=== PATIENT | female | born 1950 | race American Indian/Alaskan Native ===

== ENCOUNTER 2018-01-04 20:49 | Inpatient (IN) | payer MEDICARE, OTHER ==
[2018-01-04 22:45] LABS: Basophils # (Auto) 0.1 K/mm3 (0.0-0.1); Basophils % (Auto) 0.7 % (0.0-1.8); Eosinophils # (Auto) 0.1 K/mm3 (0.0-0.4); Eosinophils % (Auto) 1.3 % (0.0-4.3); Hematocrit 41.1 % (30.3-42.9); Lymphocytes # (Auto) 3.4 K/mm3 (1.2-5.4); Mean Corpuscular HGB Conc 34 % (30-34); Mean Corpuscular Hemoglobin 31 pg (28-32); Mean Corpuscular Volume 92 fl (79-97); Monocytes # (Auto) 0.6 K/mm3 (0.0-0.8); Monocytes % (Auto) 6.8 % (0.0-7.3); Platelet Count 277 K/mm3 (140-440); Red Cell Distribution Width 14.2 % (13.2-15.2)
[2018-01-04 23:12] LABS: Alanine Aminotransferase 12 units/L (7-56); Albumin 4.5 g/dL (3.9-5); BUN/Creatinine Ratio 12; Blood Urea Nitrogen 7 mg/dL (7-17); Calcium 9.7 mg/dL (8.4-10.2); Hemolysis Index 5
[2018-01-05] MEDS ORDERED: NACL 0.9% 1000 ML 1,000 ML IV ONE (07:59)
[2018-01-05] MEDS ORDERED: ZOFRAN IV ONE (07:59)
--- NOTE | 2018-01-05 08:05 | Emergency Department Report ---
ED Dizziness HPI - General Chief Complaint: Dizziness Stated Complaint: N/V; WEAKNESS Time Seen by Provider: 01/05/18 07:51 Source: patient Mode of arrival: Ambulatory Limitations: No Limitations - History of Present Illness Initial Comments: Mrs. Uriostegui is a 67 years old female with history of hypertension and GERD. Patient presented to the ER complaining off day history of nausea vomiting and diarrhea and nasal drainage. She stated that she is unable to keep anything down. Patient is also stating that she has been very dizzy lately. She denied any chest pain, or shortness of breath, abdominal pain, weakness numbness or tingling sensation. MD Complaint: dizziness - Related Data Allergies Allergy/AdvReac Type Severity Reaction Status Date / Time No Known Allergies Allergy Verified 01/05/18 08:05 ED Review of Systems ROS: Stated complaint: N/V; WEAKNESS Other details as noted in HPI Comment: All other systems reviewed and negative Constitutional: denies: chills, fever ENT: throat pain Cardiovascular: denies: chest pain, palpitations Gastrointestinal: nausea, vomiting, diarrhea. denies: abdominal pain, constipation, hematemesis, hematochezia Genitourinary: denies: urgency Neurological: denies: headache, weakness, numbness, paresthesias, confusion, abnormal gait ED Past Medical Hx - Past Medical History Hx Hypertension: Yes Hx GERD: Yes Hx Arthritis: Yes - Surgical History Additional Surgical History: Hysterectomy, Fracture right knee, Lap band, Total right knee replacement - Social History Smoking Status: Never Smoker Substance Use Type: None ED Physical Exam - General Limitations: No Limitations General appearance: alert, in no apparent distress - Head Head exam: Present: atraumatic, normocephalic, normal inspection - ENT ENT exam: Present: mucous membranes dry - Neck Neck exam: Present: normal inspection, full ROM. Absent: tenderness, meningismus, lymphadenopathy, thyromegaly - Respiratory Respiratory exam: Present: normal lung sounds bilaterally. Absent: respiratory distress, wheezes, rales, rhonchi, stridor, chest wall tenderness, accessory muscle use, decreased breath sounds, prolonged expiratory - Cardiovascular Cardiovascular Exam: Present: regular rate, normal rhythm, normal heart sounds - GI/Abdominal GI/Abdominal exam: Present: soft, normal bowel sounds. Absent: distended, tenderness, guarding, rebound, rigid, organomegaly, mass, bruit, pulsatile mass , hernia - Extremities Exam Extremities exam: Present: normal inspection, full ROM, normal capillary refill - Back Exam Back exam: Present: normal inspection, full ROM. Absent: tenderness, CVA tenderness (R), CVA tenderness (L), muscle spasm, paraspinal tenderness, vertebral tenderness, rash noted - Neurological Exam Neurological exam: Present: alert, oriented X3, CN II-XII intact, normal gait, reflexes normal - Skin Skin exam: Present: warm, intact, normal color ED Course Vital Signs 01/04/18 01/05/18 01/05/18 21:53 02:42 07:46 Temperature 98.7 F 97.8 F Pulse Rate 84 86 67 Respiratory 18 14 14 Rate Blood Pressure 145/75 159/73 Blood Pressure [Left] O2 Sat by Pulse 98 100 99 Oximetry 01/05/18 01/05/18 01/05/18 07:51 08:00 08:01 Temperature 98.2 F Pulse Rate 71 76 Respiratory 16 22 16 Rate Blood Pressure 152/75 Blood Pressure 152/75 [Left] O2 Sat by Pulse 100 Oximetry ED Medical Decision Making - Lab Data Result diagrams: 01/04/18 22:20 01/04/18 22:20 - EKG Data -: EKG Interpreted by Mi EKG shows normal: sinus rhythm Rate: normal - EKG Data Interpretation: no acute changes - Radiology Data Radiology results: report reviewed Referring Physician: MATHIEU CANO Patient Name: DEVON URIOSTEGUI Date of : 1950 Sex: Female Report Date: 2018-01-05 Report Status: Finalized Findings [facility] [address] [place] [address] XRay Report Signed Patient: DEVON URIOSTEGUI MR#: [id number] : 1950 Acct:[id number] Age/Sex: 67 / F ADM Date: 01/04/18 Loc: ED Attending Dr: Ordering Physician: MATHIEU CANO Date of Service: 01/05/18 Procedure(s): XR chest 1V ap Accession Number(s): [id number] cc: MATHIEU CANO Fluoro Time In Minutes: FINAL REPORT EXAM: XR CHEST 1V AP HISTORY: cough TECHNIQUE: Frontal chest x-ray. PRIORS: None currently available. FINDINGS: Cardiac silhouette is within normal limits. Aortic calcifications. There is no effusion. There is no pneumothorax. There is no consolidation. There are no suspicious osseous lesions. IMPRESSION: No acute cardiopulmonary findings. Transcribed By: JEAN-PAUL Dictated By: CARRILLO KEARNEY MD Electronically Authenticated By: CARRILLO KEARNEY MD Signed Date/Time: 01/05/18934 Referring Physician: MATHIEU CANO Patient Name: DEVON URIOSTEGUI Date of : 1950 Sex: Female Report Date: 2018-01-05 Report Status: Finalized Findings [facility] [address] [place] [address] Cat Scan Report Signed Patient: DEVON URIOSTEGUI MR#: [id number] : 1950 Acct:[id number] Age/Sex: 67 / F ADM Date: 01/04/18 Loc: ED Attending Dr: Ordering Physician: MATHIEU CANO Date of Service: 01/05/18 Procedure(s): CT head/brain wo con Accession Number(s): [id number] cc: MATHIEU CANO FINAL REPORT EXAM: CT HEAD/BRAIN WO CON HISTORY: dizziness TECHNIQUE: CT of the Head without IV contrast. PRIORS: None currently available. FINDINGS: There is no evidence for acute ischemia. There is no hemorrhage. There is no midline shift. There is no hydrocephalus. There is no mass. Age appropriate [place]-white matter attenuation is noted. There is no calvarial fracture. The temporal bones demonstrate aerated mastoid air cells. The middle ears appear unremarkable. Paranasal sinuses are unremarkable. Globes are intact. IMPRESSION: No acute intracranial findings. Transcribed By: TYM Dictated By: CARRILLO KEARNEY MD Electronically Authenticated By: CARRILLO KEARNEY MD Signed Date/Time: 01/05/18928 DD/ 8 TD/TT: 01/05/18928 DD/ 4 TD/TT: 01/05/18934 - Medical Decision Making I discussed the patient was Dr. Conley, he agreed to admit the patient to his service. Critical Care Time: Yes Critical care time in (mins) excluding proc time.: 30 Critical care attestation.: If time is entered above; I have spent that time in minutes in the direct care of this critically ill patient, excluding procedure time. ED Disposition Clinical Impression: Dizziness, Hypokalemia, Vomiting Disposition: OP ADMIT IP TO THIS HOSP Is pt being admited?: Yes Condition: Stable Referrals: JYOTI LEMOS MD [Primary Care Provider] - 3-5 Days
[2018-01-05] MEDS: KCL 10MEQ/100ML 10 MEQ/100 ML BAG IV SCH ×2 (09:23→11:37)
--- NOTE | 2018-01-05 09:30 | Cat Scan Report ---
FINAL REPORT EXAM: CT HEAD/BRAIN WO CON HISTORY: dizziness TECHNIQUE: CT of the Head without IV contrast. PRIORS: None currently available. FINDINGS: There is no evidence for acute ischemia. There is no hemorrhage. There is no midline shift. There is no hydrocephalus. There is no mass. Age appropriate [place]-white matter attenuation is noted. There is no calvarial fracture. The temporal bones demonstrate aerated mastoid air cells. The middle ears appear unremarkable. Paranasal sinuses are unremarkable. Globes are intact. IMPRESSION: No acute intracranial findings.
--- NOTE | 2018-01-05 09:36 | XRay Report ---
FINAL REPORT EXAM: XR CHEST 1V AP HISTORY: cough TECHNIQUE: Frontal chest x-ray. PRIORS: None currently available. FINDINGS: Cardiac silhouette is within normal limits. Aortic calcifications. There is no effusion. There is no pneumothorax. There is no consolidation. There are no suspicious osseous lesions. IMPRESSION: No acute cardiopulmonary findings.
[2018-01-05] MEDS ORDERED: NACL 0.9% 250ML 250 ML IV ONE (10:44)
[2018-01-05] MEDS ORDERED: PHENERGAN PR PRN (16:01)
[2018-01-05] MEDS ORDERED: MORPHINE IV PRN (16:01)
[2018-01-05] MEDS ORDERED: TYLENOL PO PRN ×2 (16:01→23:30)
[2018-01-05] MEDS ORDERED: SODIUM CHLORIDE FLUSH SYRINGE 10 ML IV PRN ×2 (16:01→23:30)
[2018-01-05] MEDS ORDERED: REGLAN IV PRN (16:01)
[2018-01-05] MEDS ORDERED: ZOFRAN IV PRN ×2 (16:01→23:30)
--- NOTE | 2018-01-05 16:01 | History and Physical Report ---
History of Present Illness Date of examination: 01/05/18 Date of admission: 01/05/18 11:18 Medications and Allergies Allergies Allergy/AdvReac Type Severity Reaction Status Date / Time No Known Allergies Allergy Verified 01/05/18 08:05 Exam - Constitutional Vitals: Temp Pulse Resp BP Pulse Ox 98.2 F 72 18 112/44 95 01/05/18 13:08 01/05/18 13:00 01/05/18 13:00 01/05/18 13:00 01/05/18 13:00 Results - Labs CBC & Chem 7: 01/04/18 22:20 01/04/18 22:20 Labs: Laboratory Last Values WBC 9.3 K/mm3 (4.5-11.0) 01/04/18 22:20 RBC 4.50 M/mm3 (3.65-5.03) 01/04/18 22:20 Hgb 14.0 gm/dl (10.1-14.3) 01/04/18 22:20 Hct 41.1 % (30.3-42.9) 01/04/18 22:20 MCV 92 fl (79-97) 01/04/18 22:20 MCH 31 pg (28-32) 01/04/18 22:20 MCHC 34 % (30-34) 01/04/18 22:20 RDW 14.2 % (13.2-15.2) 01/04/18 22:20 Plt Count 277 K/mm3 (140-440) 01/04/18 22:20 Lymph % (Auto) 37.0 % (13.4-35.0) H 01/04/18 22:20 Crane % (Auto) 6.8 % (0.0-7.3) 01/04/18 22:20 Eos % (Auto) 1.3 % (0.0-4.3) 01/04/18 22:20 Baso % (Auto) 0.7 % (0.0-1.8) 01/04/18 22:20 Lymph # 3.4 K/mm3 (1.2-5.4) 01/04/18 22:20 Crane # 0.6 K/mm3 (0.0-0.8) 01/04/18 22:20 Eos # 0.1 K/mm3 (0.0-0.4) 01/04/18 22:20 Baso # 0.1 K/mm3 (0.0-0.1) 01/04/18 22:20 Seg Neutrophils % 54.2 % (40.0-70.0) 01/04/18 22:20 Seg Neutrophils # 5.0 K/mm3 (1.8-7.7) 01/04/18 22:20 Sodium 143 mmol/L (137-145) 01/04/18 22:20 Potassium 2.7 mmol/L (3.6-5.0) L* 01/04/18 22:20 Chloride 95.7 mmol/L (98-107) L 01/04/18 22:20 Carbon Dioxide 36 mmol/L (22-30) H 01/04/18 22:20 Anion Gap 14 mmol/L 01/04/18 22:20 BUN 7 mg/dL (7-17) 01/04/18 22:20 Creatinine 0.6 mg/dL (0.7-1.2) L 01/04/18 22:20 Estimated GFR > 60 ml/min 01/04/18 22:20 BUN/Creatinine Ratio 12 % 01/04/18 22:20 Glucose 119 mg/dL (65-100) H 01/04/18 22:20 Calcium 9.7 mg/dL (8.4-10.2) 01/04/18 22:20 Magnesium 2.10 mg/dL (1.7-2.3) 01/05/18 00:51 Total Bilirubin 1.40 mg/dL (0.1-1.2) H 01/04/18 22:20 AST 20 units/L (5-40) 01/04/18 22:20 ALT 12 units/L (7-56) 01/04/18 22:20 Alkaline Phosphatase 92 units/L (35-129) 01/04/18 22:20 Total Protein 7.6 g/dL (6.3-8.2) 01/04/18 22:20 Albumin 4.5 g/dL (3.9-5) 01/04/18 22:20 Albumin/Globulin Ratio 1.5 % 01/04/18 22:20
[2018-01-05] MEDS: D5NS 1,000 ML IV SCH (17:28)
[2018-01-05] MEDS ORDERED: PEPCID PO SCH (22:00)
[2018-01-05] MEDS: SODIUM CHLORIDE FLUSH SYRINGE 10 ML IV SCH (22:27)
[2018-01-06 03:59] LABS: Basophils # (Auto) 0.1 K/mm3 (0.0-0.1); Basophils % (Auto) 0.7 % (0.0-1.8); Eosinophils # (Auto) 0.2 K/mm3 (0.0-0.4); Eosinophils % (Auto) 1.9 % (0.0-4.3); Hematocrit 37.2 % (30.3-42.9); Hemoglobin 12.5 gm/dl (10.1-14.3); Lymphocytes # (Auto) 3.2 K/mm3 (1.2-5.4); Lymphocytes % (Auto) 39.2 % (13.4-35.0); Mean Corpuscular HGB Conc 34 % (30-34); Mean Corpuscular Hemoglobin 31 pg (28-32); Mean Corpuscular Volume 91 fl (79-97); Monocytes # (Auto) 0.6 K/mm3 (0.0-0.8); Monocytes % (Auto) 7.1 % (0.0-7.3); Platelet Count 232 K/mm3 (140-440); Red Blood Count 4.09 M/mm3 (3.65-5.03)
[2018-01-06 04:28] LABS: Alanine Aminotransferase 8 units/L (7-56); Albumin 3.2 g/dL (3.9-5); BUN/Creatinine Ratio 10; Blood Urea Nitrogen 6 mg/dL (7-17); Calcium 8.6 mg/dL (8.4-10.2); Hemolysis Index 3
[2018-01-06] MEDS: D5NS 1,000 ML IV SCH (05:53)
[2018-01-06] MEDS ORDERED: K-DUR PO ONE (06:18)
--- NOTE | 2018-01-06 06:52 | Event Note ---
Date: 01/05/18 See dictated H/p inreports AGE Acute sinusitis HTN
[2018-01-06] MEDS ORDERED: KCL 10MEQ/100ML 10 MEQ/100 ML BAG IV SCH (07:00)
[2018-01-06] MEDS: KCL 10MEQ/100ML 10 MEQ/100 ML BAG IV SCH ×4 (07:22→10:35)
[2018-01-06] MEDS: K-DUR PO SCH ×3 (07:23→20:10)
[2018-01-06 08:43] LABS: BUN/Creatinine Ratio 10; Blood Urea Nitrogen 6 mg/dL (7-17); Calcium 8.7 mg/dL (8.4-10.2); Hemolysis Index 7
--- NOTE | 2018-01-06 08:43 | History and Physical Report ---
CHIEF COMPLAINT: 1. Dizziness. 2. Vomiting. 3. Postnasal drainage. HISTORY OF PRESENT ILLNESS: A 67-year-old female with history of hypertension and gastroesophageal reflux disease, says that she is vomiting on a regular basis and has been dizzy of late. On further questioning, the patient says the patient has lot of postnasal discharge and is actually spitting the postnasal discharge into the emesis bag. No actual vomiting. No fever, no chills. No diarrhea. No exacerbating or relieving factors. Lying down exacerbates postnasal drainage. PAST MEDICAL HISTORY: Significant for hypertension, gastroesophageal reflux disease, and arthritis. PAST SURGICAL HISTORY: Hysterectomy, right knee replacement, lap band surgery. Fractured right knee in the past. SOCIAL HISTORY: Does not smoke. No alcohol, no recreational drugs. FAMILY HISTORY: Hypertension. REVIEW OF SYSTEMS: Significant for severe postnasal drainage and the possible vomiting. Otherwise, review of systems negative. PHYSICAL EXAMINATION: GENERAL: The patient lying in bed comfortably. VITAL SIGNS: Temperature 98.6, pulse is 74, respirations 18, blood pressure 135/60, sats are 99%. HEENT: Unremarkable. Pupils equal and reactive. NECK: Supple, no lymphadenopathy, no thyromegaly. LUNGS: Clear to auscultation and percussion. Good air entry. CARDIOVASCULAR SYSTEM: S1, S2 heard. No gallop, no murmur, no rub. Apical impulse in left fifth intercostal space in midclavicular line. ABDOMEN: Soft and benign. No hepatosplenomegaly. No guarding, no rigidity. Hernial orifices are normal. EXTREMITIES: Good pedal pulses. No pedal edema. CENTRAL NERVOUS SYSTEM: Alert and oriented x 4, nonfocal exam. LABORATORY DATA: EKG, normal sinus rhythm, heart rate of 67 per minute, no acute ST-T wave changes. IMAGING STUDIES: No acute intracranial findings on head CT. Chest x-ray: No acute cardiopulmonary findings. ASSESSMENT AND PLAN: 1. Acute gastroenteritis. The patient says more postnasal drainage. Anyway, we will treat for acute gastroenteritis. IV fluids and IV Zofran, IV Protonix. CT of the head shows the paranasal sinuses unremarkable. In summary, IV Zofran and IV fluids for the time being. 2. Hypokalemia, severe. Supplemented aggressively with IV potassium and oral potassium. Recheck the potassium level. 3. Acute gastritis. Continue Protonix. 4. Hypertension. The patient not on any antihypertensives. Will trend the blood pressure and start on antihypertensives if necessary. 5. Deep venous thrombosis prophylaxis, Lovenox 40 subcutaneous daily. JOB# [id number] VSM/NTS
[2018-01-06] MEDS: PROTONIX IV SCH ×2 (09:30→22:07)
[2018-01-06] MEDS: SODIUM CHLORIDE FLUSH SYRINGE 10 ML IV SCH ×2 (09:30→22:08)
[2018-01-06] MEDS ORDERED: SODIUM CHLORIDE FLUSH SYRINGE 10 ML IV SCH (10:00)
[2018-01-06] MEDS: D5W/0.45% NACL/KCL 30 MEQ 30 MEQ/1,000 ML BAG IV SCH ×2 (13:05→22:23)
--- NOTE | 2018-01-06 17:12 | Progress Note ---
Assessment and Plan Acute gastroenteritis Intractable N/V Hypokalemia HTN s/p gastric bypass surgery DVT PX - Cont aggressive iv fluid and K replacement along with PPI - resumed home meds - consult GI as symptom persisted - as needed zofran iv - Dvt Px with lovenox - repeat BMP in the am Brief History: Mrs. Uriostegui is a 67 years old female with history of hypertension and GERD presented to the ER complaining of nausea vomiting and diarrhea for about a month which recently for last few days has gotten worsen that she is unable to keep anything down. Subjective Date of service: 01/06/18 Interval history: Pt seen and examined Cont to c/o N/V No abdominal pain today Objective - Constitutional Vitals: Vital Signs - 12hr 01/06/18 01/06/18 01/06/18 07:50 10:00 13:41 Temperature 98.4 F 98.0 F Pulse Rate 70 74 73 Respiratory 18 18 Rate Blood Pressure 102/42 144/68 O2 Sat by Pulse 98 97 Oximetry General appearance: Present: no acute distress, well-nourished - EENT Eyes: PERRL, EOM intact ENT: hearing intact, clear oral mucosa Ears: bilateral: normal - Neck Neck: supple, normal ROM - Respiratory Respiratory effort: normal Respiratory: bilateral: CTA - Cardiovascular Rhythm: regular Heart Sounds: Present: S1 & S2. Absent: gallop, rub Extremities: pulses intact, No edema, normal color, Full ROM - Gastrointestinal General gastrointestinal: Present: soft, non-tender, non-distended, normal bowel sounds - Integumentary Integumentary: clear, warm, dry - Musculoskeletal Musculoskeletal: 1, strength equal bilaterally - Neurologic Neurologic: moves all extremities - Psychiatric Psychiatric: memory intact, appropriate mood/affect, intact judgment & insight - Labs CBC & Chem 7: 01/06/18 03:23 01/06/18 08:08 Labs: Abnormal lab results 01/05/18 01/06/18 01/06/18 Range/Units 17:04 03:23 03:23 Lymph % (Auto) 39.2 H (13.4-35.0) % Sodium 146 H (137-145) mmol/L Potassium 2.2 L* (3.6-5.0) mmol/L BUN 6 L (7-17) mg/dL Creatinine 0.6 L (0.7-1.2) mg/dL Glucose 126 H (65-100) mg/dL Hemoglobin A1c 6.1 H (4-6) % Total Bilirubin 1.30 H (0.1-1.2) mg/dL Total Protein 6.0 L D (6.3-8.2) g/dL Albumin 3.2 L (3.9-5) g/dL 01/06/18 Range/Units 08:08 Lymph % (Auto) (13.4-35.0) % Sodium 146 H (137-145) mmol/L Potassium 2.4 L* (3.6-5.0) mmol/L BUN 6 L (7-17) mg/dL Creatinine 0.6 L (0.7-1.2) mg/dL Glucose 141 H (65-100) mg/dL Hemoglobin A1c (4-6) % Total Bilirubin (0.1-1.2) mg/dL Total Protein (6.3-8.2) g/dL Albumin (3.9-5) g/dL - Imaging and cardiology Chest x-ray: report reviewed CT Scan - head: report reviewed
[2018-01-06] MEDS ORDERED: K-DUR PO SCH (20:30)
[2018-01-06] MEDS: LOVENOX SUB-Q SCH (22:07)
[2018-01-07 04:14] LABS: Basophils % (Auto) 0.7 % (0.0-1.8); Eosinophils # (Auto) 0.2 K/mm3 (0.0-0.4); Eosinophils % (Auto) 2.4 % (0.0-4.3); Hematocrit 35.1 % (30.3-42.9); Hemoglobin 11.8 gm/dl (10.1-14.3); Lymphocytes # (Auto) 2.8 K/mm3 (1.2-5.4); Lymphocytes % (Auto) 38.4 % (13.4-35.0); Mean Corpuscular HGB Conc 34 % (30-34); Mean Corpuscular Hemoglobin 31 pg (28-32); Mean Corpuscular Volume 91 fl (79-97); Monocytes # (Auto) 0.4 K/mm3 (0.0-0.8); Monocytes % (Auto) 5.8 % (0.0-7.3); Platelet Count 219 K/mm3 (140-440); Red Blood Count 3.84 M/mm3 (3.65-5.03); Red Cell Distribution Width 14.3 % (13.2-15.2)
[2018-01-07 04:45] LABS: BUN/Creatinine Ratio 7; Blood Urea Nitrogen 4 mg/dL (7-17); Calcium 8.7 mg/dL (8.4-10.2); Hemolysis Index 0
[2018-01-07] MEDS: K-DUR PO SCH (10:09)
[2018-01-07] MEDS: PROTONIX IV SCH ×2 (10:09→23:06)
[2018-01-07] MEDS: D5W/0.45% NACL/KCL 30 MEQ 30 MEQ/1,000 ML BAG IV SCH (10:10)
[2018-01-07] MEDS: SODIUM CHLORIDE FLUSH SYRINGE 10 ML IV SCH (10:11)
--- NOTE | 2018-01-07 11:25 | Gastroenterology Consultation ---
Addendum entered and electronically signed by KERRIE PETERSON NP 01/07/18 15: 08: will also order esophagram for further evaluation Original Note: <KERRIE PETERSON - Last Filed: 01/07/18 11:43> History of Present Illness - Reason for Consult Consult date: 01/07/18 intractable N/V Requesting physician: BANDAR CORADO - History of Present Illness Patient is a 67 y/o female with PMH of HTN, GERD, arthritis, and s/p Lap band who presented to ED with c/o N/V, diarrhea, and nasal drainage with associated dizziness. Upon admission she was found to have hypokalemia with K replacement given. GI has been consulted for intractable N/V. This morning patient was resting in bed w/o acute distress and family at bedside. She reports feeling better today with N/V improved.Tolerated diet for breakfast. Patient states that she had a Lap band adjustment in October and ever since that time, has had nausea after eating with occasional vomiting. She states she had similar symptoms last year following an adjustment with symptoms resolving after some of the fluid was taken out of her Lap band. She voices concern that this is the cause of her current symptoms as well. Admits to having 1 episode of diarrhea a couple of days ago which has since resolved. Denies fever, unintentional wt loss , CP, SOB, abd pain, signs of bleeding, or constipation. Past History Past Medical History: arthritis, GERD, hypertension Past Surgical History: hysterectomy, Other (right knee, Lap band) Social history: , lives with family. denies: smoking, alcohol abuse Medications and Allergies Allergies Allergy/AdvReac Type Severity Reaction Status Date / Time No Known Allergies Allergy Verified 01/05/18 08:05 Home Medications Medication Instructions Recorded Confirmed Last Taken Type Pantoprazole Sodium 40 mg PO QDAY 01/05/18 01/05/18 01/01/18 History Active Meds: Active Medications Acetaminophen (Tylenol) 650 mg PO Q4H PRN PRN Reason: Pain MILD(1-3)/Fever >100.5/CALDWELL Enoxaparin Sodium (Lovenox) 40 mg SUB-Q QDAY@2200 OLU Last Admin: 01/06/18 22:07 Dose: 40 mg Potassium Chloride/Dextrose/Sod Cl (D5w/0.45% Nacl/Kcl 30 Meq) 30 meq in 1,000 mls @ 100 mls/hr IV DIRECT [facility] Last Admin: 01/07/18 10:10 Dose: 100 mls/hr Potassium Chloride (Kcl 10meq/100ml) 10 meq in 100 mls @ 100 mls/hr IV Q1H [facility] Stop: 01/07/18 14:59 Metoclopramide HCl (Reglan) 10 mg IV Q6H PRN PRN Reason: Nausea And Vomiting Morphine Sulfate (Morphine) 2 mg IV Q4H PRN PRN Reason: Pain, Moderate (4-6) Ondansetron HCl (Zofran) 4 mg IV Q8H PRN PRN Reason: Nausea And Vomiting Last Admin: 01/05/18 17:35 Dose: 4 mg Pantoprazole Sodium (Protonix) 40 mg IV BID [facility] Last Admin: 01/07/18 10:09 Dose: 40 mg Potassium Chloride (K-Dur) 40 meq PO QDAY [facility] Last Admin: 01/07/18 10:09 Dose: 40 meq Promethazine HCl (Phenergan) 25 mg CO Q6H PRN PRN Reason: N/V IF NPO AND NO IV ACCESS Sodium Chloride (Sodium Chloride Flush Syringe 10 Ml) 10 ml IV BID [facility] Last Admin: 01/07/18 10:11 Dose: 10 ml Sodium Chloride (Sodium Chloride Flush Syringe 10 Ml) 10 ml IV PRN PRN PRN Reason: LINE FLUSH Review of Systems - Review of Systems All systems: negative Gastrointestinal: nausea, vomiting Exam - Constitutional Vital Signs: Temp Pulse Resp BP Pulse Ox 98.2 F 64 18 142/62 98 01/07/18 07:22 01/07/18 07:22 01/07/18 07:22 01/07/18 07:22 01/07/18 07:22 General appearance: no acute distress - EENT Eyes: PERRL, EOM intact ENT: hearing intact - Respiratory Respiratory: bilateral: CTA - Cardiovascular Rhythm: regular Heart Sounds: Present: S1 & S2 - Gastrointestinal General gastrointestinal: Present: soft, non-tender, non-distended, normal bowel sounds - Neurologic Neurological: alert and oriented x3 - Labs CBC & Chem 7: 01/07/18 03:43 01/07/18 03:43 Lab Results: Laboratory Results - last 24 hr 01/07/18 01/07/18 03:43 03:43 WBC 7.2 RBC 3.84 Hgb 11.8 Hct 35.1 MCV 91 MCH 31 MCHC 34 RDW 14.3 Plt Count 219 Lymph % (Auto) 38.4 H Mccreary % (Auto) 5.8 Eos % (Auto) 2.4 Baso % (Auto) 0.7 Lymph # 2.8 Mccreary # 0.4 Eos # 0.2 Baso # 0.0 Seg Neutrophils % 52.7 Seg Neutrophils # 3.8 Sodium 143 Potassium 2.9 L* D Chloride 105.8 Carbon Dioxide 29 Anion Gap 11 BUN 4 L Creatinine 0.6 L Estimated GFR > 60 BUN/Creatinine Ratio 7 Glucose 130 H Calcium 8.7 Assessment and Plan 1.intractable N/V -Patient with a hx of Lap band who presents with c/o N/V following a recent adjustment in October (had similar symptoms last year following an adjustment with symptoms resolved after fluid was removed from Lap band) -etiology- most likely 2/2 Lap band vs other -clinically, patient is feeling better with N/V improved. No abd pain. Tolerating diet. -no plans for scope at this time -continue PPI, antiemetics, and supportive care -electrolyte management per primary team -recommend Lap band be assessed by bariatric surgeon <VIANNEY LIVE - Last Filed: 01/07/18 15:58> Medications and Allergies Active Meds: Active Medications Acetaminophen (Tylenol) 650 mg PO Q4H PRN PRN Reason: Pain MILD(1-3)/Fever >100.5/[place] Enoxaparin Sodium (Lovenox) 40 mg SUB-Q QDAY@2200 [facility] Last Admin: 01/06/18 22:07 Dose: 40 mg Potassium Chloride/Dextrose/Sod Cl (D5w/0.45% Nacl/Kcl 30 Meq) 30 meq in 1,000 mls @ 100 mls/hr IV DIRECT [facility] Last Admin: 01/07/18 10:10 Dose: 100 mls/hr Metoclopramide HCl (Reglan) 10 mg IV Q6H PRN PRN Reason: Nausea And Vomiting Morphine Sulfate (Morphine) 2 mg IV Q4H PRN PRN Reason: Pain, Moderate (4-6) Ondansetron HCl (Zofran) 4 mg IV Q8H PRN PRN Reason: Nausea And Vomiting Last Admin: 01/05/18 17:35 Dose: 4 mg Pantoprazole Sodium (Protonix) 40 mg IV BID [facility] Last Admin: 01/07/18 10:09 Dose: 40 mg Potassium Chloride (K-Dur) 40 meq PO QDAY [facility] Last Admin: 01/07/18 10:09 Dose: 40 meq Promethazine HCl (Phenergan) 25 mg CO Q6H PRN PRN Reason: N/V IF NPO AND NO IV ACCESS Sodium Chloride (Sodium Chloride Flush Syringe 10 Ml) 10 ml IV BID [facility] Last Admin: 01/07/18 10:11 Dose: 10 ml Sodium Chloride (Sodium Chloride Flush Syringe 10 Ml) 10 ml IV PRN PRN PRN Reason: LINE FLUSH Exam - Constitutional Vital Signs: Temp Pulse Resp BP Pulse Ox 98.3 F 65 18 144/69 99 01/07/18 13:17 01/07/18 13:17 01/07/18 13:17 01/07/18 13:17 01/07/18 13:17 - Labs CBC & Chem 7: 01/07/18 03:43 01/07/18 03:43 Lab Results: Laboratory Results - last 24 hr 01/07/18 01/07/18 03:43 03:43 WBC 7.2 RBC 3.84 Hgb 11.8 Hct 35.1 MCV 91 MCH 31 MCHC 34 RDW 14.3 Plt Count 219 Lymph % (Auto) 38.4 H Mccreary % (Auto) 5.8 Eos % (Auto) 2.4 Baso % (Auto) 0.7 Lymph # 2.8 Mccreary # 0.4 Eos # 0.2 Baso # 0.0 Seg Neutrophils % 52.7 Seg Neutrophils # 3.8 Sodium 143 Potassium 2.9 L* D Chloride 105.8 Carbon Dioxide 29 Anion Gap 11 BUN 4 L Creatinine 0.6 L Estimated GFR > 60 BUN/Creatinine Ratio 7 Glucose 130 H Calcium 8.7 Assessment and Plan Pt seen and examined. her symptoms seem started after lap bad adjustment so suspect symptoms are related to this. she has dysphagia so will obtain esophagram. tolerating po today. can be discharged from gi stand point with f/ u with bariatric surgeon.
[2018-01-07] MEDS: KCL 10MEQ/100ML 10 MEQ/100 ML BAG IV SCH ×4 (11:39→17:24)
--- NOTE | 2018-01-07 16:56 | Fluoroscopy Report ---
BARIUM SWALLOW: History: Intractable nausea and vomiting. 18 fluoroscopic images were captured. Manager [employer]iting images demonstrate an air-fluid level in the esophagus. The patient was only able to ingest a small amount of contrast agent before vomiting. Contrast agent pooled in the distal esophagus. There appears to be complete or near-complete obstruction at the level of the lap band device. No evidence for esophageal mass or ulceration. IMPRESSION: Obstruction at the level of the lap band device.
--- NOTE | 2018-01-07 17:50 | Progress Note ---
Assessment and Plan Assessment and plan: Acute gastroenteritis, improved Intractable N/V - improved - GI consulted Hypokalemia -on repletion, will monitor -mg level normal HTN -stable h/o gastric bypass surgery -for outpt f/u Prediabetes with hemoglobin A1c of 6.1 -Diet control Disposition: For possible d/c in 24-48 hours if clinically stable History Interval history: Pt has no new complaints. He denies chest pain or shortness of breath. Hospitalist Physical - Constitutional Vitals: Temp Pulse Resp BP Pulse Ox 98.3 F 65 18 144/69 99 01/07/18 13:17 01/07/18 13:17 01/07/18 13:17 01/07/18 13:17 01/07/18 13:17 General appearance: Present: no acute distress, well-nourished - EENT Eyes: Present: PERRL, EOM intact ENT: hearing intact, clear oral mucosa - Neck Neck: Present: supple - Respiratory Respiratory effort: normal Respiratory: bilateral: CTA - Cardiovascular Rhythm: other (bradycardia with regular rhythm) Heart Sounds: Present: S1 & S2 - Extremities Extremities: No edema - Abdominal General gastrointestinal: soft, non-tender, normal bowel sounds - Neurologic Neurologic: CNII-XII intact Results - Labs CBC & Chem 7: 01/07/18 03:43 01/07/18 03:43 Labs: Laboratory Last Values WBC 7.2 K/mm3 (4.5-11.0) 01/07/18 03:43 RBC 3.84 M/mm3 (3.65-5.03) 01/07/18 03:43 Hgb 11.8 gm/dl (10.1-14.3) 01/07/18 03:43 Hct 35.1 % (30.3-42.9) 01/07/18 03:43 MCV 91 fl (79-97) 01/07/18 03:43 MCH 31 pg (28-32) 01/07/18 03:43 MCHC 34 % (30-34) 01/07/18 03:43 RDW 14.3 % (13.2-15.2) 01/07/18 03:43 Plt Count 219 K/mm3 (140-440) 01/07/18 03:43 Lymph % (Auto) 38.4 % (13.4-35.0) H 01/07/18 03:43 [place] % (Auto) 5.8 % (0.0-7.3) 01/07/18 03:43 Eos % (Auto) 2.4 % (0.0-4.3) 01/07/18 03:43 Baso % (Auto) 0.7 % (0.0-1.8) 01/07/18 03:43 Lymph # 2.8 K/mm3 (1.2-5.4) 01/07/18 03:43 [place] # 0.4 K/mm3 (0.0-0.8) 01/07/18 03:43 Eos # 0.2 K/mm3 (0.0-0.4) 01/07/18 03:43 Baso # 0.0 K/mm3 (0.0-0.1) 01/07/18 03:43 Seg Neutrophils % 52.7 % (40.0-70.0) 01/07/18 03:43 Seg Neutrophils # 3.8 K/mm3 (1.8-7.7) 01/07/18 03:43 Sodium 143 mmol/L (137-145) 01/07/18 03:43 Potassium 2.9 mmol/L (3.6-5.0) L* D 01/07/18 03:43 Chloride 105.8 mmol/L (98-107) 01/07/18 03:43 Carbon Dioxide 29 mmol/L (22-30) 01/07/18 03:43 Anion Gap 11 mmol/L 01/07/18 03:43 BUN 4 mg/dL (7-17) L 01/07/18 03:43 Creatinine 0.6 mg/dL (0.7-1.2) L 01/07/18 03:43 Estimated GFR > 60 ml/min 01/07/18 03:43 BUN/Creatinine Ratio 7 % 01/07/18 03:43 Glucose 130 mg/dL (65-100) H 01/07/18 03:43 Hemoglobin A1c 6.1 % (4-6) H 01/05/18 17:04 Calcium 8.7 mg/dL (8.4-10.2) 01/07/18 03:43 Magnesium 2.10 mg/dL (1.7-2.3) 01/05/18 00:51 Total Bilirubin 1.30 mg/dL (0.1-1.2) H 01/06/18 03:23 AST 15 units/L (5-40) 01/06/18 03:23 ALT 8 units/L (7-56) 01/06/18 03:23 Alkaline Phosphatase 66 units/L (35-129) 01/06/18 03:23 Total Protein 6.0 g/dL (6.3-8.2) L D 01/06/18 03:23 Albumin 3.2 g/dL (3.9-5) L 01/06/18 03:23 Albumin/Globulin Ratio 1.1 % 01/06/18 03:23
[2018-01-07] MEDS: LOVENOX SUB-Q SCH (23:20)
[2018-01-08 06:40] LABS: BUN/Creatinine Ratio 3; Blood Urea Nitrogen 2 mg/dL (7-17); Calcium 9.1 mg/dL (8.4-10.2); Hemolysis Index 5
--- NOTE | 2018-01-08 08:30 | Progress Note ---
Assessment and Plan Assessment and plan: Admitted with N/V, and profound hypokalemia A/P Persistent Hypokalemia 2/2 GI loses Continue K repletion Not ready for d/c today probably d.c home tomorrow Intractable N/V, improved continue antiemetics Aspiration precautions at all times Pre diabetes counseled' monitor BG and Aic on outpt bases. Obesity with h/o gastric lap band. outpt mgt. further pt mgt per hospital course DVT and GI ucler prophylaxis Dispo: d/c home in 24 hrs Hospitalist Physical - Constitutional Vitals: Temp Pulse Resp BP Pulse Ox 97.4 F L 79 16 160/81 97 01/08/18 07:34 01/08/18 07:34 01/08/18 07:34 01/08/18 07:34 01/08/18 07:34 General appearance: Present: no acute distress, well-nourished Results - Labs CBC & Chem 7: 01/07/18 03:43 01/08/18 05:46 Labs: Laboratory Last Values WBC 7.2 K/mm3 (4.5-11.0) 01/07/18 03:43 RBC 3.84 M/mm3 (3.65-5.03) 01/07/18 03:43 Hgb 11.8 gm/dl (10.1-14.3) 01/07/18 03:43 Hct 35.1 % (30.3-42.9) 01/07/18 03:43 MCV 91 fl (79-97) 01/07/18 03:43 MCH 31 pg (28-32) 01/07/18 03:43 MCHC 34 % (30-34) 01/07/18 03:43 RDW 14.3 % (13.2-15.2) 01/07/18 03:43 Plt Count 219 K/mm3 (140-440) 01/07/18 03:43 Lymph % (Auto) 38.4 % (13.4-35.0) H 01/07/18 03:43 [place] % (Auto) 5.8 % (0.0-7.3) 01/07/18 03:43 Eos % (Auto) 2.4 % (0.0-4.3) 01/07/18 03:43 Baso % (Auto) 0.7 % (0.0-1.8) 01/07/18 03:43 Lymph # 2.8 K/mm3 (1.2-5.4) 01/07/18 03:43 [place] # 0.4 K/mm3 (0.0-0.8) 01/07/18 03:43 Eos # 0.2 K/mm3 (0.0-0.4) 01/07/18 03:43 Baso # 0.0 K/mm3 (0.0-0.1) 01/07/18 03:43 Seg Neutrophils % 52.7 % (40.0-70.0) 01/07/18 03:43 Seg Neutrophils # 3.8 K/mm3 (1.8-7.7) 01/07/18 03:43 Sodium 148 mmol/L (137-145) H 01/08/18 05:46 Potassium 3.0 mmol/L (3.6-5.0) L 01/08/18 05:46 Chloride 108.9 mmol/L (98-107) H 01/08/18 05:46 Carbon Dioxide 28 mmol/L (22-30) 01/08/18 05:46 Anion Gap 14 mmol/L 01/08/18 05:46 BUN 2 mg/dL (7-17) L 01/08/18 05:46 Creatinine 0.6 mg/dL (0.7-1.2) L 01/08/18 05:46 Estimated GFR > 60 ml/min 01/08/18 05:46 BUN/Creatinine Ratio 3 % 01/08/18 05:46 Glucose 98 mg/dL (65-100) 01/08/18 05:46 Hemoglobin A1c 6.1 % (4-6) H 01/05/18 17:04 Calcium 9.1 mg/dL (8.4-10.2) 01/08/18 05:46 Magnesium 1.70 mg/dL (1.7-2.3) 01/08/18 05:46 Total Bilirubin 1.30 mg/dL (0.1-1.2) H 01/06/18 03:23 AST 15 units/L (5-40) 01/06/18 03:23 ALT 8 units/L (7-56) 01/06/18 03:23 Alkaline Phosphatase 66 units/L (35-129) 01/06/18 03:23 Total Protein 6.0 g/dL (6.3-8.2) L D 01/06/18 03:23 Albumin 3.2 g/dL (3.9-5) L 01/06/18 03:23 Albumin/Globulin Ratio 1.1 % 01/06/18 03:23
[2018-01-08] MEDS ORDERED: K-DUR PO NR (09:00)
[2018-01-08] MEDS: PROTONIX PO SCH ×2 (09:13→11:00)
[2018-01-08] MEDS: K-DUR PO SCH (09:17)
[2018-01-08] MEDS ORDERED: MAG-OX PO SCH (10:00)
[2018-01-08] MEDS: KCL 10MEQ/100ML 10 MEQ/100 ML BAG IV SCH ×2 (11:00→12:47)
[2018-01-08] MEDS: SODIUM CHLORIDE FLUSH SYRINGE 10 ML IV SCH (11:01)
--- NOTE | 2018-01-08 11:49 | Gastroenterology Progress Note ---
Assessment and Plan 1.intractable N/V -Patient with a hx of Lap band who presents with c/o N/V following a recent adjustment in October (had similar symptoms last year following an adjustment with symptoms resolved after fluid was removed from Lap band) -etiology- most likely 2/2 Lap band -esophagram obtained yesterday that revealed obstruction at the level of the lap band device -clinically, patient is feeling better with N/V improved. No abd pain. Tolerating diet. -no plans for scope -recommend patient follow up with bariatric surgeon -continue supportive care -no further recommendations per GI standpoint -will sign off, please call if needed Subjective Date of service: 01/08/18 Principal diagnosis: intractable N/V Interval history: Patient sitting up on the side of the bed this am w/o acute distress. Denies abd pain. No episodes of N/V overnight or this am. Tolerated small bites of food for breakfast this am w/o difficultly. Objective - Constitutional Vitals: Temp Pulse Resp BP Pulse Ox 97.4 F L 79 16 160/81 97 01/08/18 07:34 01/08/18 07:34 01/08/18 07:34 01/08/18 07:34 01/08/18 07:34 General appearance: no acute distress - Respiratory Respiratory: bilateral: CTA - Cardiovascular Rhythm: regular Heart Sounds: Present: S1 & S2 - Gastrointestinal General gastrointestinal: Present: soft, non-tender, non-distended, normal bowel sounds - Neurologic Neurological: alert and oriented x3 - Labs CBC & Chem 7: 01/07/18 03:43 01/08/18 05:46 Labs: Laboratory Results - last 24 hr 01/07/18 01/08/18 19:24 05:46 Sodium 148 H Potassium 3.1 L 3.0 L Chloride 108.9 H Carbon Dioxide 28 Anion Gap 14 BUN 2 L Creatinine 0.6 L Estimated GFR > 60 BUN/Creatinine Ratio 3 Glucose 98 Calcium 9.1 Magnesium 1.70
[2018-01-08] MEDS ORDERED: POTASSIUM CHLORIDE FEEDTUBE ONE (12:00)
[2018-01-08] MEDS ORDERED: K-DUR PO ONE (12:30)
[2018-01-08 15:24] VITALS: BP 144/65
--- NOTE | 2018-01-08 15:32 | Discharge Summary ---
Providers - Providers Date of Admission: 01/05/18 11:18 Date of discharge: 01/08/18 Attending physician: MIKALA CARY 01/06/18 17:12 Consult to Physician [CONS] Routine Comment: CALLED ANSW. SERV./spoke to briseida/gibran Consulting Provider: INDIGO JIMENEZ Physician Instructions: Reason For Exam: intractable N/v Primary care physician: JYOTI LEMOS Hospitalization Reason for admission: Admitted with Intractable N/V , with profound hypokalemia Condition: Stable Pertinent studies: Chest XR CT head Hospital course: Patient is a 67 y/o female with h/o Gastric bypass, who was admitted with intractable N/V and profound Hypokalemia, dehydration and generalized weakness. She was admitted to the Hospital medicine service. Treated with IVF hydration, repletion of potassium,. Was seen in consultation by the GI specialist. Patient's k is 3.0, she has recieved KCL 40meq by mouth and KCL 20meq IV. She will be discharged home today with outpatient follow up with her PCP and Bariatric Surgeon. Her K level should be checked at her PCP's office this week. Disposition: DC-01 TO HOME OR SELFCARE Time spent for discharge: More than 30 mins - Discharge Diagnoses (1) Vomiting Status: Resolved Qualifiers: Vomiting Intractability: intractable Comment: Resolved, liquid diet as tolerated. Follow up with your Bariatric surgeon (2) Hypokalemia Status: Acute Comment: s/p Repletion with both oral and IV KCL. Need repeat K level this week at her PCP's office. Continue home KCL. (3) Dizziness Status: Resolved Comment: Resolved , fall precautions at all times (4) Generalized weakness Status: Acute Comment: resolved. fall precautions (5) Dehydration Status: Acute Comment: resolved, continue clear liquids and advance as tolerated. Core Measure Documentation - Palliative Care Palliative Care/ Comfort Measures: Not Applicable - Core Measures Any of the following diagnoses?: none - VTE Discharge Requirements Deep Vein Thrombosis/Pulmonary Embolism Present on Admission: No Has pt received <5 days of overlap therapy or INR<2.0: No Anticoagulant overlap therapy prescribed at discharge: No Contraindication No Overlap Therapy order at DC: Not Indicated - Acute MD Discharge Requirements Aspirin at discharge: No Reason for no aspirin on DC: Intolerance in past [place] [place]/ARB for LVSD if EF <40%: Not Applicable Beta olimpia at discharge: No Reason for no beta olimpia on DC: Medical contraindication Statin for LDL = or >100 mg/dl on DC: Not Applicable - Heart Failure Discharge Requirements [facility] [place]/ARB for LVSD if EF <40%: Not Applicable - Stroke Discharge Requirements Statin for LDL = or >70 mg/dl on DC: Not Applicable Exam - Constitutional Vitals: Temp Pulse Resp BP Pulse Ox 98.8 F 70 20 144/65 100 01/08/18 13:42 01/08/18 13:42 01/08/18 13:42 01/08/18 13:42 01/08/18 13:42 General appearance: Present: no acute distress, well-nourished, obese - EENT Eyes: Present: PERRL, EOM intact ENT: hearing intact, clear oral mucosa, dentition normal - Neck Neck: Present: supple, normal ROM - Respiratory Respiratory effort: normal Respiratory: bilateral: CTA, negative: rales, rhonchi, wheezing - Cardiovascular Rhythm: regular Heart Sounds: Present: S1 & S2 - Extremities Extremities: no ischemia, pulses intact, pulses symmetrical Peripheral Pulses: within normal limits - Abdominal General gastrointestinal: Present: soft, non-tender, non-distended, normal bowel sounds Female genitourinary: Present: deferred - Rectal Rectal Exam: deferred - Integumentary Integumentary: Present: clear, warm, dry - Musculoskeletal Musculoskeletal: strength equal bilaterally - Psychiatric Psychiatric: appropriate mood/affect, intact judgment & insight, memory intact, cooperative - Neurologic Neurologic: CNII-XII intact, moves all extremities, gait normal Plan Activity: no restrictions, advance as tolerated Weight Bearing Status: Full Weight Bearing Diet: advance as tolerated Special Instructions: other (Follow up with your bariatric surgeon soonest) Follow up with: JYOTI LEMOS MD [Primary Care Provider] - 3-5 Days
== END 2018-01-08 17:20 | disposition home or self-care (01) | DRG 392 ==
LOC: ED 20:49 → 2B-ACE 01-05 11:18
PROVIDERS: ADMIT Internal Medicine; ATTEND Family Medicine
PROC: BD11YZZ Fluoroscopy of Esophagus using Other Contrast (ICD-10-PCS; principal; 2018-01-07)
DX: K29.00 Acute gastritis without bleeding (principal); K52.9 Noninfective gastroenteritis and colitis, unspecified; E87.6 Hypokalemia; E86.0 Dehydration; R42 Dizziness and giddiness; I10 Essential (primary) hypertension; E11.9 Type 2 diabetes mellitus without complications; K21.9 Gastro-esophageal reflux disease without esophagitis; M19.90 Unspecified osteoarthritis, unspecified site; Z96.651 Presence of right artificial knee joint; J01.90 Acute sinusitis, unspecified; R13.10 Dysphagia, unspecified; Z98.84 Bariatric surgery status; Z90.710 Acquired absence of both cervix and uterus; Z82.49 Family history of ischemic heart disease and other diseases of the circulatory system
CPT/HCPCS: 36415; 70450; 71045; 74220; 80048; 80053; 83036; 83735; 84132; 85025; 93005; 93010; 96374; 96375; 99291; C9113; J1650; J2405; J3480; J7030; J7042; J7050